=== PATIENT | female | born 2005 | race American Indian/Alaskan Native ===

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

== ENCOUNTER 2024-02-03 10:15 | Outpatient (RCR) | payer OTHER, SELFPAY ==
--- NOTE | 2023-11-07 11:34 | PTOPEVAL1 ---
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 Pt states when she rotates her knee, feels like it gets out of socket and can't get it back into socket . States with sitting cross legged causes this and turning over in bed. the socket sensation has been in the last 6-12 months. Reported Pain Level Pain Score 0: Self Report Assessment PT Clinical Summary Pt presents with history of knee pain that has worsened in the last 6-12 months timeframe. She also reports 9 months ago starting a new control which may or may not have an effect on her ligament laxity. She does demo (+) anterior drawer but both ACL and PCL appear intact. She has increased pain with torsion of the tibia and valgus and varus testing. She also demo's decreased flexibility multiple muscle groups, poor squat kinematics, and genu recurvatum posturing all of which are suggestive of knee instability without sprain/strain. She has been educated on multiple aspect of her therapy plan today including addressing her knee alignment with squats, standing at work, and cryotherapy for anti -inflammatory properties. Pt will greatly benefit from physical therapy to continue educating on appropriate work out and postural routines, address alignment deficits, and improve overall stability with muscle activation techniques to allow pt to return to PLOF without high levels of pain. Plan of Care Interventions Electrical Stimulation,Hot Pack/Cold Pack,Manual Therapy,Neuro Re-education,Patient/Caregiver Educati,Therapeutic Activities,Therapeutic Exercise,Self-Care/Home Management,Ultrasound, Other Other Interventions Taping, bracing, IASTM PT Services Indicated Yes Treatment Frequency and 1-2x weekly x 10 visits Duration These treatments will address the objective and functional deficits as defined above. The patient will be advanced safely and appropriately in order for the patient to progress towards his/her prior level of function. Additional exercises will be introduced and as well as a comprehensive home exercise program upon discharge, if needed, ?to ensure carryover of functional gains achieved in the clinic. This treatment plan has been reviewed and agreement upon by the patient.
--- NOTE | 2023-11-07 11:35 | OPREHPOC ---
Outpatient Therapy Plan of Care This is a Multidisciplinary Plan of Care that may contain components documented by all disciplines (PT, OT, and ST.) PT Problem 1 PT Problem #1 Knowledge Deficit PT Goal 1 Goal / Goal Update Pt will be independent in HEP Pt will verbalize understanding of diagnosis and prognosis Target Visit 5 PT Problem 2 PT Problem #2 Pain PT Goal 1 Goal / Goal Update Pt will report resolution of feeling of knee going out of socket with turning over in bed. PT Goal 2 Goal / Goal Update Pt will report greatest pain level at 3/10 or less to improve ADLs and activities Target Visit 10 PT Problem 3 PT Problem #3 Impaired Strength PT Goal 1 Goal / Goal Update Pt will demo glutes medius strength of 4/5 or greater Target Visit 10 PT Problem 4 PT Problem #4 Impaired Flexibility PT Goal 1 Goal / Goal Update Pt will demo only mild decreased flexibility of the right hip and ITB Target Visit 5 PT Goal 2 Goal / Goal Update Pt will demo flexibility of soleous, R hip, and ITB WFL Target Visit 10
--- NOTE | 2023-11-25 10:09 | PCPTNOTE ---
Patient did not show up for scheduled appointment this date.
--- NOTE | 2023-12-19 11:31 | PTOPPROG ---
Assessment and note entered by Breanna Hernandez, PT Evaluation Information Assessment Status Progress Diagnosis right knee pain ICD-10 Condition Codes (PT) M25.561,Weakness R53.1 Other ICD-10 Condition Codes ( instability of right knee PT) Onset 10 years Subjective Information No longer working 12 hours shifts or two jobs. Has gotten back to working out and has not had any issues in the knees. Pt reports has not had any instances recently which her knee felt it would go out of socket but is more aware of it now. Reports with Soccer drills trying to go as fast as she used to do is still painful on the right. Assessment PT Clinical Summary Pt has attended therapy consistently for right knee pain. Her highest reported pain level has decreased from a 10/10 to a 6/10, she still has 0/ 10 at times. Her bed mobility no longer causes discomfort in her knee, her sitting has been modified to decrease knee pain as well. She shows improved flexibility and strength overall. Pt has returned to her workouts without pain, however her dynamic stability with soccer activities are still bothersome. However she still demo's significant LCL laxity with (+) valgus testing and observable subluxation and clicking with 90/90 internal rotation testing. She also demo's less patellar crepitus but now has a clicking with active ROM flexion extension. Pt will benefit from knee bracing to improve lateral stability in high level dynamic activity and continued therapy to progress her own knowledge, alignment, strength and stability with her high level activities to maximal outcomes and decreasing possibility of future injury. Plan of Care Interventions Electrical Stimulation,Hot Pack/Cold Pack,Manual Therapy,Neuro Re-education,Patient/Caregiver Educati,Therapeutic Activities,Therapeutic Exercise,Self-Care/Home Management,Ultrasound, Other Other Interventions Bracing, Taping PT Services Indicated Yes Treatment Frequency and 1x weekly x 6 visits Duration These treatments will address the objective and functional deficits as defined above. The patient will be advanced safely and appropriately in order for the patient to progress towards his/her prior level of function. Additional exercises will be introduced and as well as a comprehensive home exercise program upon discharge, if needed, ?to ensure carryover of functional gains achieved in the clinic. This treatment plan has been reviewed and agreement upon by the patient.
--- NOTE | 2024-01-06 12:31 | PCPTNOTE ---
Clerical called pt 5 minutes after appt was to begin. Pt states she forgot and she would be unable to make it in time. Appt cancelled. Pt reminded of upcoming appointment coupled with bracing consult.
--- NOTE | 2024-02-10 13:38 | PCPTNOTE ---
This treatment is being continued on visit number [id number]. Please see documentation on both accounts to view progress. Completed interventions, outcomes, and problems have been marked as Inactive to facilitate the copying of the Care plan routine for recurring accounts.
== END 2024-02-05 23:59 | disposition home or self-care (01) ==
LOC: ANHHIPT 10:15
PROVIDERS: PCP Nurse Practitioner Family; Visit Provider Nurse Practitioner Family
DX: M25.561 Pain in right knee (principal); R53.1 Weakness
CPT/HCPCS: 97014; 97110; 97112; 97161; 97530; G0283

== ENCOUNTER 2024-02-16 15:54 | Outpatient (RCR) | payer OTHER, SELFPAY ==
--- NOTE | 2024-02-10 13:46 | PCPTNOTE ---
The treatment documented on this account is a continuation of the treatment documented on visit number [id number]. Please see documentation on both accounts to view progress. The Plan of Care has been transitioned and updated within the new V#. I have addressed and agree with the discipline specific Problems, Interventions, and Goals for the current certification period. Completed interventions, outcomes, and problems have been marked as Inactive to facilitate the copying of the Care plan routine for recurring accounts.
--- NOTE | 2024-02-16 15:48 | PTOPDC ---
Assessment and note entered by Breanna Hernandez, PT Evaluation Information Assessment Status Discharge Diagnosis right knee pain ICD-10 Condition Codes (PT) Pain in right knee M25.561,Weakness R53.1 Other ICD-10 Condition Codes ( instability of right knee PT) Onset 10 years Subjective Information Pt states feels 90&% improved. Brace is going well . Hasn't had a chance to try soccer drills. Reported Pain Level Pain Score 0: Self Report Assessment PT Clinical Summary Pt has attended therapy consistently for right knee pain. She reports today does not remember the last time she had pain in her knee, reports feeling 90% improved overall with the last 10% only being she hasn't been able to play and attempt soccer techniques independently yet. She has met most of her goals including acquisition of brace, knee taping, and function. She has been educated on continuation of exercises and on when to return to therapy in the future if necessary. Thus patient is being discharged for completion of therapy program Plan of Care PT Services Indicated No
== END 2024-02-16 15:54 | disposition home or self-care (01) ==
LOC: ANHHIPT 15:54
PROVIDERS: PCP Nurse Practitioner Family; Visit Provider Nurse Practitioner Family
DX: M25.561 Pain in right knee (principal); R53.1 Weakness
CPT/HCPCS: 97110; 97750

== ENCOUNTER 2024-12-11 09:45 | Outpatient (RCR) | payer OTHER, SELFPAY ==
--- NOTE | 2024-11-15 07:58 | PTOPEVAL1 ---
Assessment and note entered by Breanna Hernandez, PT Evaluation Information Assessment Status Evaluation ICD-10 Condition Codes (PT) Pain in left knee M25.562,Weakness R53.1 Subjective Information Prior right knee issues, this is doing better. Left knee is bothering her now. Left knee started bothering her about 3 weeks ago. Went for a huge hike and has been sore since. Also has been doing more walking lately. Reports was wearing Drake shoes with ankle support. Prior to this was playing soccer without issue. Going to [facility] for for; to (do) Centers Aggravating Factors Stairs make it worse, bending with weight on leg Alleviating factors: laying on her side, ibuprofen Reported Pain Level Pain Score 0: Self Report Assessment PT Clinical Summary Pt presents with left knee pain approx persisting approx three weeks after a long hiking excursion. There is clicking with ROM of knee lateral superior patella and (+) clicking with Corbin's test suggestive of possible meniscal involvement. She shows adhesions around distal left iliotibial band, irritate poplietus, and weak gluteus medius on the left. Pt will benefit from conservative therapy to address deficits and improve function to return to PLOF. Plan of Care Interventions Electrical Stimulation,Hot Pack/Cold Pack,Manual Therapy,Neuro Re-education,Patient/Caregiver Education,Therapeutic Activities,Therapeutic Exercise,Self-Care/Home Management,Ultrasound, Other Other Interventions Taping, bracing PT Services Indicated Yes Treatment Frequency and 2x weekly x 10 visits Duration These treatments will address the objective and functional deficits as defined above. The patient will be advanced safely and appropriately in order for the patient to progress towards his/her prior level of function. Additional exercises will be introduced and as well as a comprehensive home exercise program upon discharge, if needed, ?to ensure carryover of functional gains achieved in the clinic. This treatment plan has been reviewed and agreement upon by the patient.
--- NOTE | 2024-11-15 07:58 | OPREHPOC ---
Outpatient Therapy Plan of Care This is a Multidisciplinary Plan of Care that may contain components documented by all disciplines (PT, OT, and ST.) PT Problem 1 PT Problem #1 Knowledge Deficit PT Goal 1 Goal / Goal Update Pt will be independent in HEP Pt will verbalize understanding of diagnosis and prognosis Target Visit 5 PT Problem 2 PT Problem #2 Impaired Flexibility PT Goal 1 Goal / Goal Update Pt will demonstrate only mild decreased gastroc flexibility to offload knee structures Target Visit 10 PT Goal 2 Goal / Goal Update Pt will demonstrate only mild decreased flexibility iliotibial band to offload knee structures Target Visit 20 PT Problem 3 PT Problem #3 Pain PT Goal 1 Goal / Goal Update Pt will report greatest pain level at 3/10 or less to improve ADLs and activities Target Visit 10 PT Goal 2 Goal / Goal Update Pt will report resolution of pain to return to PLOF Target Visit 20 PT Problem 4 PT Problem #4 Impaired Strength PT Goal 1 Goal / Goal Update Pt will demonstrate 5/5 left gluteus medius to support LLE in functional use Target Visit 20
--- NOTE | 2024-12-03 16:06 | PCPTNOTE ---
Pt cancelled scheduled physical therapy appointment this date due to feeling better. Pt's next scheduled appointment is a re-evaluation.
--- NOTE | 2024-12-11 14:15 | PTOPDC ---
Assessment and note entered by Breanna Hernandez, PT Evaluation Information Assessment Status Discharge ICD-10 Condition Codes (PT) Pain in left knee M25.562,Weakness R53.1 Subjective Information Pt reports feeling 75% improved States running and squatting form are still problematic Stairs are doing better was able to go for a big hike yesterday with only 3/10 pain at the end that resolved quickly Reported Pain Level Pain Score 1: Self Report Assessment PT Clinical Summary Pt has attended five physical therapy sessions for her left knee pain She reports feeling 75% improved, LEFS disability rating reduced from 71% to 19%, and her highest pain level reduced from 9/ 10 to 3/10 with high level activities. She has been educated in continued exercises independently , appropriate form while in the gym, and when to return to therapy in the future if she feels is necessary. Thus patient is being discharged for having progressed and per patient request. Plan of Care PT Services Indicated No
== END 2024-12-11 15:53 | disposition home or self-care (01) ==
LOC: ANHHIPT 09:45
PROVIDERS: PCP Nurse Practitioner Family; Visit Provider Nurse Practitioner Family
DX: M25.562 Pain in left knee (principal)
CPT/HCPCS: 97014; 97035; 97110; 97140; 97161; 97530; 97750; G0283